=== PATIENT | female | born 1975 | race African-American/Black ===

== ENCOUNTER 2016-06-14 12:15 | Emergency (ER) | payer MEDICAID ==
[~2016-06-14] VITALS: Ht 175.3 cm; Wt 87.0 kg
[2016-06-14 12:20] VITALS: BP 130/74
== END 2016-06-14 19:30 | disposition left against medical advice (07) ==
LOC: ER 12:16
DX: R07.9 Chest pain, unspecified (principal); Z53.21 Procedure and treatment not carried out due to patient leaving prior to being seen by health care provider